=== PATIENT | female | born 1950 | race Caucasian/White ===

== ENCOUNTER → 2024-03-16 13:50 | Outpatient (REF) | payer MEDICARE, OTHER, SELFPAY | LOC: WDC 13:50 | PROVIDERS: ATTENDING PHYSICIAN Obstetrics & Gynecology Gynecology; FAMILY PHYSICIAN Family Medicine | DX: Z12.31 Encounter for screening mammogram for malignant neoplasm of breast (principal) | CPT/HCPCS: 77063; 77067 ==

== ENCOUNTER → 2024-07-21 09:09 | Outpatient (REF) | payer MEDICARE, OTHER, SELFPAY ==
[2024-07-21 10:56] LABS: Hematocrit 45.2 % (37.0-47.0); Hemoglobin 15.2 g/dL (12.0-16.0); Mean Corp Hgb Conc. 33.6 g/dL (33.0-37.0); Mean Corpuscular Hgb 32.5 pg (27.0-31.0); Mean Corpuscular Volume 96.6 fL (81.0-99.0); Mean Platelet Volume 10.2 fL (7.4-10.4); Platelet Count 254 10^3/uL (130-400); Red Blood Cell Count 4.68 10^6/uL (4.20-5.40); Red Cell Dist. Width 12.7 % (11.5-14.5); White Blood Cell Count 4.6 10^3/uL (4.8-10.8)
[2024-07-21 12:42] LABS: Blood Urea Nitrogen 16 mg/dl (7-17); Calcium 9.5 mg/dl (8.4-10.2); Carbon Dioxide 22 mmol/L (22-30); Chloride 108 mmol/L (98-107); Glucose 101 mg/dl (70-99); Sodium 143 mmol/L (135-145); eGFR > 60.00
[2024-07-21 12:58] LABS: Potassium 4.2 mmol/L (3.5-5.1)
== END ==
LOC: SDSPAT 09:09
PROVIDERS: ATTENDING PHYSICIAN Obstetrics & Gynecology; FAMILY PHYSICIAN Family Medicine
DX: Z01.818 Encounter for other preprocedural examination (principal)
CPT/HCPCS: 36415; 80048; 85027; 86850; 86900; 86901; 93005

== ENCOUNTER 2024-07-26 06:38 | Day surgery (SDC) | payer MEDICARE, OTHER, SELFPAY ==
[2024-07-21 14:25] VITALS: BMI 34.4
[2024-07-26] VITALS (11 sets, daily range): BP systolic 121–157; BP diastolic 63–98; BMI 34.4
[2024-07-26] MEDS: NORMOSOL-R/PLASMALYTE-A 1000 IV (07:51)
[2024-07-26] MEDS: Pyridium 200 MG PO (07:51)
[2024-07-26] MEDS: HEPARIN 5000 UNITS SC (07:51)
== END 2024-07-26 13:30 | disposition home or self-care (01) ==
LOC: SDS 06:38
PROVIDERS: ATTENDING PHYSICIAN Obstetrics & Gynecology
DX: N81.3 Complete uterovaginal prolapse (principal); N39.3 Stress incontinence (female) (male); N39.41 Urge incontinence
CPT/HCPCS: 57282; 57260

== ENCOUNTER 2024-08-03 21:04 | Emergency (ER) | payer MEDICARE, OTHER, SELFPAY ==
[2024-08-03 21:05] VITALS: BP 161/100
[2024-08-03 21:35] LABS: % Basophils 0.9 % (0-2); % Eosinophils 4.5 % (0-6); % Immature Granulocytes 0.2 % (0-0.5); % Lymphocytes 35.5 % (20.5-51.1); % Monocytes 9.2 % (1.7-9.3); % Neutrophils 49.7 % (42.2-75.2); Absolute Basophils 0.1 10^3/uL (0-0.2); Absolute Eosinophils 0.3 10^3/uL (0-0.7); Absolute Lymphocytes 2.4 10^3/uL (1.2-3.4); Absolute Monocytes 0.6 10^3/uL (0.1-0.6); Absolute Neutrophils 3.3 10^3/uL (1.4-6.5); Hematocrit 43.2 % (37.0-47.0); Hemoglobin 14.7 g/dL (12.0-16.0); Mean Corpuscular Hgb 32.1 pg (27.0-31.0); Mean Corpuscular Volume 94.3 fL (81.0-99.0); Mean Platelet Volume 9.7 fL (7.4-10.4); Nucleated Red Blood Cells % 0 %; Platelet Count 260 10^3/uL (130-400); Red Blood Cell Count 4.58 10^6/uL (4.20-5.40); Red Cell Dist. Width 12.8 % (11.5-14.5); White Blood Cell Count 6.6 10^3/uL (4.8-10.8)
[2024-08-03 21:45] LABS: ALT (SGPT) 28 U/L (0-35); AST (SGOT) 26 U/L (14-36); Albumin 4.8 g/dl (3.5-5.0); Alkaline Phosphatase 99 U/L (38-126); Blood Urea Nitrogen 15 mg/dl (7-17); Calcium 9.4 mg/dl (8.4-10.2); Carbon Dioxide 23 mmol/L (22-30); Chloride 108 mmol/L (98-107); Glucose 106 mg/dl (70-99); Potassium 3.9 mmol/L (3.5-5.1); Sodium 141 mmol/L (135-145); Total Bilirubin 0.8 mg/dl (0.2-1.3); Total Protein 7.5 g/dl (6.3-8.2); eGFR > 60.00
--- NOTE | 2024-08-03 22:24 | ED.GENMED ---
History of Present Illness
General
Chief Complaint: Vaginal Bleeding
Source: patient and spouse
Exam Limitations: none
Time Seen by Provider: 08/03/24 21:41
Nursing documentation reviewed up to this point in time: agreed with
History of Present Illness
History of Present Illness:
Patient status post vaginal prolapse repair 1 week ago, presents to ED secondary to vaginal bleeding starting last night, consisting of bright red blood with passage of clots. Denies fever or chills. Denies abdominal pain. Denies nausea or
vomiting. Denies new trauma. Denies difficulty with urination. Denies dizziness or shortness of breath.
Past History
Past History
ED Past Medical History: HTN
ED Past Surgical History: Orthopedic
Social History
Tobacco: Non-smoker
Alcohol: None
Drug: None
Personal:
Living: with family
Family History
Family History: Other
Review of Systems
Review of Systems
Allergies reviewed?: Yes
All Other Systems: ROS reviewed and negative except as documented in HPI and ROS
Constitutional: Reports no symptoms; Denies fever
Respiratory: Reports no symptoms; Denies trouble breathing
ABD/GI: Reports abdominal pain; Denies vomiting or diarrhea
: Reports bleeding
Musculoskeletal: Reports no symptoms
Skin: Reports no symptoms
Neurological: Reports no symptoms; Denies dizzy or weakness
Phy Exam
Physical Exam
Physical Exam:
Physical Exam
General: no apparent distress, not acutely ill. afebrile.
Head: nc/at. eomi
Neck: supple. normal range of motion
Abdomen: normal bowel sounds. not tender.
Neuro: alert and oriented x 3. no focal neurological deficits
Skin: no rash
Psychiatric: well kept. interactive and cooperative
Extremities: no edema. no calf tenderness.
Course
Orders/Labs/Results
Orders:
Orders
08/03/24 21:21
Type And Crossmatch [Type+Screen] Urgent
Complete Blood Count/With Diff Urgent
Comprehensive Metabolic Panel Urgent
08/03/24 23:43
Phenazopyridine HCl [Pyridium] 100 mg PO NOW STA
08/03/24 23:50
Consult Urology [UROLOGY CONSULT] Urgent
Consulting Provider: Juvenal Evangelista
Was physician already notified: Yes
Comment: vaginal bleeding
Abnormal Lab Results
08/03/24
21:21
MCH 32.1 H pg
(27.0-31.0)
Chloride 108 H mmol/L
(98-107)
Glucose 106 H mg/dl
(70-99)
08/03/24 21:21
08/03/24 21:21
Vital Signs
Initial and Last Documented VS:
Initial Vital Signs
Temp Pulse Resp BP Pulse Ox
97.7 F 74 16 161/100 97
08/03/24 21:05 08/03/24 21:05 08/03/24 21:05 08/03/24 21:05 08/03/24 21:05
Last Documented Vital Signs
Temp Pulse Resp BP Pulse Ox
97.7 F 69 18 151/86 95
08/03/24 21:05 08/04/24 00:07 08/04/24 00:07 08/04/24 00:07 08/04/24 00:07
MDM/Problems Addressed
MDM/Problems Addressed:
H/H noted. Pt remains hemodynamically stable.
Discussed with (poultry farmer meat/urology) who will come and evaluate patient in ED.
Pt evaluated by who noted urethral prolapse as the source of bleeding. Grewal Catheter inserted by who will see patient in the office tomorrow afternoon.
*Critical Care Note
Total Time (30-74mins, 75-104mins- exclusive of procedures): Not Applicable
ED Attending Note
-
Portions of this chart may have been created with voice recognition software.� Occasional wrong word or��sound alike� substitutions may have occurred due to the inherent limitations of voice recognition software.
Discharge Plan
Departure
Patient Disposition: Home (Routine Discharge)
Date of Disposition: 08/03/24
Time of Disposition: 23:52
Patient with high blood pressure during this ER visit?: Yes
Condition: Good
Discharge Problem:
Prolapse of urethra
Instructions: How to care for a urinary catheter
Prescriptions:
No Action
multivitamin [One Daily] 1 EACH tablet
1 ea PO DAILY
levothyroxine [Synthroid] 137 MCG tablet
137 mcg PO DAILY
atorvastatin 10 MG tablet
10 mg PO QPM
topiramate [Topamax] 50 MG tablet
50 mg PO BID
Vitamin B-6:
1 tab PO DAILY
Vitamin B12:
1 tab PO DAILY
Vitamin D3:
1 tab PO DAILY
fluticasone propionate 50 mcg/actuation [place],Suspension
1 spray INTRANASAL DAILY
aspirin 81 mg Capsule
81 mg PO DAILY
ascorbic acid (vitamin C) [Vitamin C] 1,000 mg Tablet
1,000 mg PO DAILY
zinc 50 mg Capsule
50 mg PO DAILY
betamethasone valerate 0.1 % Cream
1 applic TOPICAL DAILY PRN (Reason: irritation)
Referrals:
Alec Love MD [Family Provider] -
Juvenal Evangelista MD [Active] -
Activity Restrictions/Additional Instructions:
discussed, please follow up with your urologist tomorrow afternoon for further evaluation and treatment.
Interventions
Interventions:
*Risk Screen - Suicide Last Done: 08/03/24 22:30
*General Assessment Last Done: 08/03/24 22:30
*Neglect/Abuse Screening Last Done: 08/03/24 22:30
ED- Fall Risk Assessment Last Done: 08/03/24 22:30
*ED COVID-19 Vaccine History Last Done: 08/03/24 22:30
*Nursing Disposition Last Done: 08/04/24 00:13
ED-Female Genitourinary Assessment Last Done: 08/03/24 22:28
ED-Skin Assessment Last Done: 08/03/24 22:28
Discharge Date and Time
Discharge Date/Time: 08/04/24 00:13
Print Language: TELUGU
[2024-08-03] MEDS: Pyridium 100 MG PO (23:45)
--- NOTE | 2024-08-03 23:54 | W.PN.UPDATE ---
Update Note
Progress Note Update
Assessment and Plan:
Ms. Yordy Gautam is a 73-year-old woman who is 1 week status post a vaginal colpopexy with an anterior and posterior colporrhaphy here for uterine prolapse. She presents with vaginal bleeding that started earlier this evening and persisted. The
patient reports that she has passed multiple blood clots without improvement in her symptoms. This also occurred last night her symptoms resolved however tonight her symptoms are much more severe. She denies any postoperative pain and has
discontinued all of her pain medications. On presentation to the ED she was hemodynamically stable and her hemoglobin was 14. On pelvic exam the patient had a significant urethral prolapse that was causing her bleeding. Her vaginal prolapse
incisions were intact and not causing any significant bleeding. There was no abnormal discharge.
Urethral prolapse
-Silver nitrate applied to the urethral prolapse with adequate hemostasis
-Patient expected to have intermittent vaginal bleeding until prolapse resolves
-Will recommend vaginal estrogen cream after evaluation in my office tomorrow
-Urine Gerwal [address] [place] placed
Subjective
73-year-old woman presents for vaginal bleeding 1 week after vaginal prolapse repair. She reports passing multiple 2 to 4 cm sized blood clots from the vagina. Worse with movement and sitting on the toilet that started at 6 PM today. This also
occurs yesterday evening however it stopped within 1 hour. This evening it persisted for a total of 2 hours and the patient proceeded to the emergency room for evaluation. The patient denies any heavy lifting or vigorous activity. Of note she
does have severe vaginal atrophy and lichen sclerosis. Her surgery was uncomplicated last week and was discharged home on on the same day of surgery. She denies urinary tract symptoms. Denies abnormal vaginal discharge. Denies any fevers or
chills. Denies any dizziness lightheadedness or shortness of breath.
Objective
Vital Signs
Temp Pulse Resp BP Pulse Ox
97.7 F 74 16 161/100 97
08/03/24 21:05 08/03/24 21:05 08/03/24 21:05 08/03/24 21:05 08/03/24 21:05
Lab Results
08/03/24 21:21
08/03/24 21:21
Exam:
Abdomen: soft, nontender, non-distended
: +2 cm friable urethral prolapse, prolapse incisions healing well, no active bleeding from her surgical incisions, bleeding isolated to her urethral prolapse
[2024-08-04 00:07] VITALS: BP 151/86
== END 2024-08-04 00:13 | disposition home or self-care (01) ==
LOC: EMR 21:04
PROVIDERS: CONSULT PHYSICIAN Obstetrics & Gynecology; EMERGENCY PHYSICIAN Emergency Medicine; FAMILY PHYSICIAN Family Medicine
DX: N81.0 Urethrocele (principal); N93.9 Abnormal uterine and vaginal bleeding, unspecified; I10 Essential (primary) hypertension; Z98.890 Other specified postprocedural states
CPT/HCPCS: 51702; 99283; 80053; 85025; 86850; 86900; 86901

== ENCOUNTER → 2025-03-21 11:30 | Outpatient (REF) | payer MEDICARE, OTHER, SELFPAY | LOC: WDC 11:30 | PROVIDERS: ATTENDING PHYSICIAN Obstetrics & Gynecology Gynecology; FAMILY PHYSICIAN Family Medicine | DX: Z12.31 Encounter for screening mammogram for malignant neoplasm of breast (principal); Z12.39 Encounter for other screening for malignant neoplasm of breast | CPT/HCPCS: 77063; 77067 ==